=== PATIENT | male | born 1950 | race Caucasian/White ===

== ENCOUNTER 2017-05-30 17:50 | Emergency (ER) | payer BC, MEDICARE, OTHER ==
[2017-05-30] MEDS ORDERED: Ondansetron 4 MG/2 ML SDV IVPUSH ONE (18:12)
[2017-05-30] MEDS ORDERED: Sodium Chloride 0.9% 10 ML Syringe FLUSH PRN ×2 (18:12→19:18)
[2017-05-30] MEDS ORDERED: Ketorolac 30 MG/ML SDV IVPUSH ONE (18:13)
[2017-05-30] MEDS ORDERED: HYDROmorphone 1 MG/ML Syringe IVPUSH ONE (18:14)
[2017-05-30] MEDS ORDERED: Sodium Chloride 0.9% 1,000 ML IV SCH (18:15)
--- NOTE | 2017-05-30 18:37 | EDM.PDOC ---
ED HPI GENERAL MEDICAL PROBLEM - General Chief Complaint: Flank Pain Stated Complaint: PATIENT BELIEVES HE HAS KIDNEY STONES Time Seen by Provider: 05/30/17 18:08 Source of Information: Reports: Patient History Limitations: Reports: No Limitations - History of Present Illness INITIAL COMMENTS - FREE TEXT/NARRATIVE: The patient presents with right flank pain. This started a couple days ago. He says this feels like his past kidney stones. He also has not been feeling good with nausea, but no abdominal pain. He denies fever but he had the chills last night. He has no dysuria and no hematuria. He has also been coughing up some blood tonight. He denies chest pain and shortness of breath. He has a history of kidney stones. He has not been around anyone who is sick. He has a headache. Onset: Gradual Duration: Day(s): (Yesterday) Location: Reports: Head, Back (right flank) Quality: Reports: Sharp Severity: Moderate Improves with: Reports: None Worsens with: Reports: None Associated Symptoms: Reports: Cough, Fever/Chills, Headaches, Nausea/Vomiting. Denies: Chest Pain, Shortness of Breath Right Flank Pain Score (Numeric/FACES): 5 - Related Data Allergies Allergy/AdvReac Type Severity Reaction Status Date / Time No Known Allergies Allergy Verified 05/30/17 18:01 Home Meds: Home Meds Aspirin [Everette Chewable Aspirin] 81 mg PO DAILY 06/25/14 [History] Losartan/Hydrochlorothiazide [Losartan-HCTZ 100-12.5 MG] 1 tab PO DAILY [History] amLODIPine [Norvasc] 10 mg PO DAILY 06/25/14 [History] Azithromycin [IJD: Azithromycin] 250 mg PO DAILY #6 tab 05/30/17 [Rx] Codeine/Promethazine [Phenergan with Codeine] 5 - 10 ml PO Q6HR PRN #300 ml [Rx] Esomeprazole Magnesium [Nexium] 20 mg PO DAILY 05/30/17 [History] Metoprolol Tartrate [Lopressor] 50 mg PO DAILY 05/30/17 [History] Past Medical History Cardiovascular History: Reports: High Cholesterol, Hypertension Genitourinary History: Reports: Renal Calculus Social & Family History - Family History Family Medical History: Noncontributory - Tobacco Use Smoking Status *Q: Never Smoker Years of Tobacco use: 20 Packs/Tins Daily: 2 Used Tobacco, but Quit: Yes Second Hand Smoke Exposure: No - Caffeine Use Caffeine Use: Reports: Coffee - Alcohol Use Days Per Week of Alcohol Use: 0 - Recreational Drug Use Recreational Drug Use: No - Living Situation & Occupation Living situation: Reports: , with Spouse Occupation: Employed ED ROS GENERAL - Review of Systems Review Of Systems: See Below Constitutional: Reports: Chills. Denies: Fever HEENT: Reports: No Symptoms Respiratory: Reports: Cough, Hemoptysis. Denies: Shortness of Breath Cardiovascular: Reports: No Symptoms Endocrine: Reports: No Symptoms GI/Abdominal: Reports: Nausea. Denies: Abdominal Pain, Diarrhea, Vomiting : Reports: No Symptoms Musculoskeletal: Reports: Back Pain (Right flank pain) Skin: Reports: No Symptoms Neurological: Reports: No Symptoms ED EXAM, RENAL/ - Physical Exam Exam: See Below Exam Limited By: No Limitations General Appearance: Alert, No Apparent Distress Ears: Normal External Exam Nose: Normal Inspection Head: Atraumatic, Normocephalic Neck: Normal Inspection Respiratory/Chest: No Respiratory Distress, Lungs Clear, Normal Breath Sounds Cardiovascular: Regular Rate, Rhythm, No Edema, No Murmur GI/Abdominal: Soft, Non-Tender, No Organomegaly, No Mass Back Exam: Normal Inspection Extremities: Normal Inspection Course - Vital Signs Last Recorded V/S: Last Vital Signs Temp 98.3 F 05/30/17 18:06 Pulse 94 05/30/17 18:06 Resp 16 05/30/17 18:06 BP 119/84 05/30/17 18:06 Pulse Ox 96 05/30/17 18:06 - Orders/Labs/Meds Orders: Active Orders 24 hr Category Date Time Status Peripheral IV Care [RC] . DIRECTED Care 05/30/17 18:13 Active Abdomen Pelvis wo Cont [CT] Stat Exams 05/30/17 18:12 Stop Req Ang Chest [CT] Stat Exams 05/30/17 18:16 Stop Req Chest Abdomen Pelvis wo Cont [CT] Stat Exams 05/30/17 19:33 Taken Sodium Chloride 0.9% [Normal Saline] 1,000 ml Med 05/30/17 18:15 Active IV ASDIRECTED Sodium Chloride 0.9% [Saline Flush] Med 05/30/17 18:12 Active 10 ml FLUSH ASDIRECTED PRN ED Antiemetic Medication Reflex [OM.PC] Stat Oth 05/30/17 18:12 Ordered Peripheral IV Insertion Adult [OM.PC] Stat Oth 05/30/17 18:12 Ordered Medication Orders Sodium Chloride (Normal Saline) 1,000 mls @ 125 mls/hr IV ASDIRECTED ART Last Infusion: 05/30/17 19:55 Dose: 999 mls/hr Admin: 05/30/17 18:46 Dose: 125 mls/hr Sodium Chloride (Saline Flush) 10 ml FLUSH ASDIRECTED PRN PRN Reason: Keep Vein Open Last Admin: 05/30/17 18:48 Dose: 10 ml Labs: Laboratory Tests 05/30/17 05/30/17 Range/Units 18:47 18:47 WBC 6.78 (4.23-9.07) K/mm3 RBC 5.19 (4.63-6.08) M/mm3 Hgb 15.3 (13.7-17.5) gm/L Hct 44.1 (40.1-51.0) % MCV 85.0 (79.0-92.2) fl MCH 29.5 (25.7-32.2) pg MCHC 34.7 (32.2-35.5) g/dl RDW Std Deviation 40.8 (35.1-43.9) fL Plt Count 192 (163-337) K/mm3 MPV 10.0 (9.4-12.3) fl Neut % (Auto) 63.5 (34.0-67.9) % Lymph % (Auto) 18.7 L (21.8-53.1) % Armstrong % (Auto) 15.8 H (5.3-12.2) % Eos % (Auto) 1.8 (0.8-7.0) Baso % (Auto) 0.1 (0.1-1.2) % Neut # (Auto) 4.30 (1.78-5.38) K/mm3 Lymph # (Auto) 1.27 L (1.32-3.57) K/mm3 Armstrong # (Auto) 1.07 H (0.30-0.82) K/mm3 Eos # (Auto) 0.12 (0.04-0.54) K/mm3 Baso # (Auto) 0.01 (0.01-0.08) K/mm3 Manual Slide Review Normal smear Sodium 137 (136-145) mEq/L Potassium 3.7 (3.5-5.1) mEq/L Chloride 101 (98-107) mEq/L Carbon Dioxide 25 (21-32) mEq/L Anion Gap 14.7 (5-15) BUN 23 H (7-18) mg/dL Creatinine 2.0 H (0.7-1.3) mg/dL Est Cr Clr Drug Dosing 43.42 mL/min Estimated GFR (MDRD) 34 (>60) mL/min BUN/Creatinine Ratio 11.5 L (14-18) Glucose 97 (80-115) mg/dL Calcium 9.1 (8.5-10.1) mg/dL Total Bilirubin 0.5 (0.2-1.0) mg/dL AST 35 (15-37) U/L ALT 31 (16-63) U/L Alkaline Phosphatase 75 (46-116) U/L Total Protein 8.4 H (6.4-8.2) g/dl Albumin 3.7 (3.4-5.0) g/dl Globulin 4.7 gm/dL Albumin/Globulin Ratio 0.8 L (1-2) Lipase 192 (73-393) U/L Meds: Medications Generic Name Dose Route Start Last Admin Trade Name Freq PRN Reason Stop Dose Admin Sodium Chloride 1,000 mls @ 125 mls/hr 05/30/17 18:15 05/30/17 19:55 Normal Saline IV 999 mls/hr ASDIRECTED ART Infusion Sodium Chloride 10 ml 05/30/17 18:12 05/30/17 18:48 Saline Flush FLUSH 10 ml ASDIRECTED PRN Administration Keep Vein Open Discontinued Medications Generic Name Dose Route Start Last Admin Trade Name Freq PRN Reason Stop Dose Admin Hydromorphone HCl 1 mg 05/30/17 18:14 05/30/17 18:47 Dilaudid IVPUSH 05/30/17 18:15 1 mg ONETIME ONE Administration Sodium Chloride 100 mls @ 80 mls/hr 05/30/17 19:30 Normal Saline IV ASDIRECTED ART Iopamidol 100 ml 05/30/17 19:18 Isovue-300 (61%) IVPUSH 05/30/17 19:19 ONETIME ONE Iopamidol 50 ml 05/30/17 19:19 Isovue-370 (76%) IVPUSH 05/30/17 19:20 ONETIME ONE Ketorolac Tromethamine 30 mg 05/30/17 18:13 05/30/17 18:46 Toradol IVPUSH 05/30/17 18:14 30 mg ONETIME ONE Administration Ondansetron HCl 4 mg 05/30/17 18:12 05/30/17 18:46 Zofran IVPUSH 05/30/17 18:13 4 mg ONETIME ONE Administration Sodium Chloride 10 ml 05/30/17 19:18 Saline Flush FLUSH ONETIME PRN IV FLUSH - Re-Assessments/Exams Free Text/Narrative Re-Assessment/Exam: 05/30/17 18:36 I ordered an IV NS 125mL/hr, zofran 4mg IV, toradol 30mg IV, dilaudid 1mg IV, chest CT, CT of his abdomen and pelvis, labs, UA and influenza screen. 05/30/17 20:53 His influenza was negative. His CBC looks good. His CMP shows an elevated creatinine of 2 and a BUN of 23 with a GFR of 34. His creatinine one other time when he was here was 1.8. As far as he knows he has no kidney problems. The CT of his chest shows 6.5cm hiatal hernia with omental fat and esophagus. Dilated esophagus which could be secondary to achalasia or chronic gastroesophageal reflux. Right lower lobe pneumonia. The CT of his abdomen and pelvis shows nonobstructing stone in the right kidney 3mm in diameter. No acute abnormality in the abdomen and pelvis. 05/30/17 21:07 I will get him on some azithromycin and phenergan with codeine for the cough. His tells me that he lives off of antacids and he is up at night with heart burn and coughing lately. He may need to talk to someone about having the hiatal hernia fixed. 05/30/17 21:10 Departure - Departure Time of Disposition: 21:10 Disposition: Home, Self-Care 01 Condition: Good Clinical Impression: Renal insufficiency, Hiatal hernia Pneumonia Qualifiers: Pneumonia type: due to unspecified organism Laterality: right Lung location: lower lobe of lung Qualified Code(s): J18.1 - Lobar pneumonia, unspecified organism - Discharge Information Prescriptions: Codeine/Promethazine [Phenergan with Codeine] 5 - 10 ml PO Q6HR PRN #300 ml PRN Reason: Cough Azithromycin [IJD: Azithromycin] 250 mg PO DAILY #6 tab Referrals: Eligio Mclaughlin Jr, MD [Primary Care Provider] - 1 Week Forms: ED Department Discharge Additional Instructions: Take the zithromax 2 pills on day 1 and 1 pill on days 2 through 5. Take the phenergan with codeine 5 to 10mls every 6 hours as needed for cough. You have a 6.5cm hiatal hernia that may need to be fixed. Follow up with Dr Mclaughlin to get a referral. Your creatinine was elevated at 2. Normal is around 1. Drink more water and follow up with Dr Mclaughlin please return if you are worse. - My Orders Last 24 Hours: My Active Orders 05/30/17 18:12 Abdomen Pelvis wo Cont [CT] Stat Sodium Chloride 0.9% [Saline Flush] 10 ml FLUSH ASDIRECTED PRN ED Antiemetic Medication Reflex [OM.PC] Stat Peripheral IV Insertion Adult [OM.PC] Stat 05/30/17 18:13 Peripheral IV Care [RC] . DIRECTED 05/30/17 18:15 Sodium Chloride 0.9% [Normal Saline] 1,000 ml IV ASDIRECTED 05/30/17 18:16 Ang Chest [CT] Stat 05/30/17 19:33 Chest Abdomen Pelvis wo Cont [CT] Stat - Assessment/Plan Last 24 Hours: My Active Orders 05/30/17 18:12 Abdomen Pelvis wo Cont [CT] Stat Sodium Chloride 0.9% [Saline Flush] 10 ml FLUSH ASDIRECTED PRN ED Antiemetic Medication Reflex [OM.PC] Stat Peripheral IV Insertion Adult [OM.PC] Stat 05/30/17 18:13 Peripheral IV Care [RC] . DIRECTED 05/30/17 18:15 Sodium Chloride 0.9% [Normal Saline] 1,000 ml IV ASDIRECTED 05/30/17 18:16 Ang Chest [CT] Stat 05/30/17 19:33 Chest Abdomen Pelvis wo Cont [CT] Stat
[2017-05-30] MEDS ORDERED: Iopamidol 612 MG/ML 100 ML Bottle IVPUSH ONE (19:18)
[2017-05-30] MEDS ORDERED: Iopamidol 755 MG/ML 50 ML Bottle IVPUSH ONE (19:19)
[2017-05-30] MEDS ORDERED: Sodium Chloride 0.9% 100 ML IV SCH (19:30)
[2017-05-30 21:35] VITALS: BP 134/79
--- NOTE | 2017-06-01 10:56 | CT ---
CT chest Technique: Multiple axial sections were obtained from above the dome of the diaphragm inferiorly through the lung bases. Intravenous contrast not utilized. Comparison: No prior CT exam, previous chest x-ray of 12/21/14. Findings: Nodule is identified within the isthmus of the thyroid gland. This nodule measures approximately 1.7 cm. Slightly dilated esophagus is seen proximally containing fluid. Small mediastinal lymph nodes are seen which are felt to be within normal limits. Coronary artery calcification is identified. No pericardial thickening is seen. Small hiatal hernia is seen which contains fat. Small nodule is noted within the right upper lung measuring around 5 mm. Second small nodule also seen within the right upper lung most likely due to slight area of scarring. Mild parenchymal density is noted posteriorly within the right lung base. Lungs otherwise are clear. Bone window settings were reviewed which show slight degenerative spurring within the spine without acute abnormality. Impression: 1. Small 5 mm nodule within the right upper chest. Recommend follow-up noncontrast chest CT in one year. 2. Slight parenchymal density within the right lung base. This could represent atelectasis as well as pneumonia. Please correlate if patient has any symptoms of pneumonia. 3. Slightly dilated esophagus which could represent changes of reflux but if any further symptoms of the esophagus are present, esophagram study could be considered. 4. Small nodule within the thyroid isthmus, thyroid ultrasound could be obtained to further evaluate. Diagnostic code #9 I agree with preliminary report issued by [facility] ([facility] report finalized on 03/30/17, 9:48 PM Central Time) CT abdomen and pelvis Technique: Multiple axial sections were obtained from above the dome of the diaphragm inferiorly through the pubic symphysis. Intravenous and oral contrast not utilized. This limits the details of the exam. Comparison: Prior renal stone CT exam of 06/25/14. Findings: Liver contains a small low density area inferiorly within the right lobe. This is felt compatible with a small cyst measuring approximately 1.2 cm. No additional abnormality is identified within the liver. Spleen appears within normal limits. Adrenal glands show no nodule or mass. Atherosclerotic calcification is noted within the right renal artery. Minimal 3 mm stone or possibly vascular calcification is noted within the right kidney. Ureters show no dilatation. No ureteral calculi are seen. Aorta shows atherosclerotic change which continues into the iliac vessels without aneurysm. No retroperitoneal adenopathy or mesenteric abnormalities are seen. No pelvic mass or adenopathy is identified. Bone window settings were reviewed which show minimal degenerative spurring within the spine as well as degenerative apophyseal changes within the lower lumbar spine. No bowel dilatation is seen. Appendix is identified and appears normal. Diverticuli are seen within the sigmoid colon without diverticulitis. Impression: 1. Incidental findings as noted above. Nothing acute is identified on CT study of the abdomen and pelvis. Diagnostic code #2 I agree with preliminary report issued by [employer] ([facility] report finalized on 05/30/17, 9:48 PM Central Time)
== END 2017-05-30 21:25 | disposition home or self-care (01) ==
LOC: JD.ED 17:50
DX: N28.9 Disorder of kidney and ureter, unspecified (principal); K44.9 Diaphragmatic hernia without obstruction or gangrene; J18.9 Pneumonia, unspecified organism; Z79.82 Long term (current) use of aspirin; Z79.899 Other long term (current) drug therapy; E78.00 Pure hypercholesterolemia, unspecified; I10 Essential (primary) hypertension; Z87.442 Personal history of urinary calculi
CPT/HCPCS: 36415; 71250; 74176; 80053; 83690; 85025; 87804; 96361; 96374; 96375; 99285; J1170; J1885; J2405; J7040; J7050; 99284

== ENCOUNTER 2020-04-04 16:44 | Emergency (ER) | payer MEDICARE, OTHER ==
[2020-04-04 17:08] VITALS: BP 161/98; PULSE 77
--- NOTE | 2020-04-04 17:09 | EDM.PDOC ---
ED HPI GENERAL MEDICAL PROBLEM - General Chief Complaint: Abdominal Pain Stated Complaint: HERNIA PAIN Time Seen by Provider: 04/04/20 17:05 Source of Information: Reports: Patient History Limitations: Reports: No Limitations - History of Present Illness INITIAL COMMENTS - FREE TEXT/NARRATIVE: 70-year-old male presents to the ED with acute periumbilical pain and hard mass for the last 2 hours. Patient states he has a chronic umbilical hernia which is really never bothered him much until today. 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 He developed pain in the umbilicus with associated inability to stand erect over the last 2 hours. He states he could feel a firm hard mass at his umbilicus that was very painful. Upon arrival in the ED inability to lay down and relax he found that the umbilical hernia spontaneously reduced with a marked reduction in his pain. He never developed any nausea vomiting. He found it very difficult to try and stand erect toe walk. He has had no previous abdominal surgery. He states he has been having some loose stools the last few days. No blood noted. Onset: Today, Gradual Onset Date: 04/04/20 Onset Time: 15:00 Duration: Hour(s): (Pain periumbilical area for 2 hours.), Improving (Started to improve once he was able to lay down in the ED and relax.) Location: Reports: Abdomen (Umbilical pain with hard palpable mass according to the patient.) Quality: Reports: Ache, Other (Intermittent sharp stabbing colicky pain) Severity: Moderate Improves with: Reports: Other (Resolved after lying down and relaxing in the ED.) Worsens with: Reports: Other (Standing erect made the pain worse. He found he could not) Context: Reports: Other (Was undergoing a lot of vigorous exercise today with pushing pulling and working callus.). Denies: Activity ( walk normally.), Exercise, Lifting, Sick Contact, Trauma Associated Symptoms: Reports: Loss of Appetite. 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: Reports: Other (see below) (None.) Abdomen Pain Score (Numeric/FACES): 8 - Related Data Allergies Allergy/AdvReac Type Severity Reaction Status Date / Time No Known Allergies Allergy Verified 05/30/17 18:01 Home Meds: Home Meds Losartan/Hydrochlorothiazide [Losartan-HCTZ 100-12.5 MG] 1 tab PO DAILY 06/25/14 [History] amLODIPine [Norvasc] 10 mg PO DAILY 06/25/14 [History] Esomeprazole Magnesium [Nexium] 20 mg PO DAILY 05/30/17 [History] Metoprolol Tartrate [Lopressor] 50 mg PO DAILY 05/30/17 [History] Past Medical History Cardiovascular History: Reports: High Cholesterol, Hypertension Genitourinary History: Reports: Renal Calculus Social & Family History - Family History Family Medical History: Noncontributory - Caffeine Use Caffeine Use: Reports: Coffee - Living Situation & Occupation Living situation: Reports: , with Spouse Occupation: Employed ED ROS GENERAL - Review of Systems Review Of Systems: See Below Constitutional: Reports: Decreased Appetite. Denies: Fever, Chills, Malaise, Weakness, Fatigue, Weight Loss HEENT: Reports: Glasses (Wears glasses for reading at times.) Respiratory: Denies: Shortness of Breath, Wheezing, Pleuritic Chest Pain Cardiovascular: Reports: Blood Pressure Problem. Denies: Chest Pain, Claudication, Dyspnea on Exertion, Edema, Lightheadedness, Orthopnea, Palpitations Endocrine: Reports: No Symptoms GI/Abdominal: Reports: Abdominal Pain (See history of present illness.), Diarrhea (Loose stools once or twice daily the last few days.) : Reports: Frequency, Other Musculoskeletal: Reports: Back Pain (Trigger x2-3.), Joint Pain Skin: Reports: No Symptoms (Sips neck and shoulders at times.) Neurological: Reports: No Symptoms Psychiatric: Reports: No Symptoms Hematologic/Lymphatic: Reports: No Symptoms Immunologic: Reports: No Symptoms ED EXAM, GI/ABD - Physical Exam Exam: See Below Exam Limited By: No Limitations General Appearance: Alert, WD/WN, Anxious, Mild Distress Eyes: Bilateral: Normal Appearance (No scleral icterus or blepharal pallor.) Respiratory/Chest: No Respiratory Distress, Lungs Clear, Normal Breath Sounds, No Accessory Muscle Use Cardiovascular: Normal Peripheral Pulses, Regular Rate, Rhythm, No Edema, No Murmur, No Rub GI/Abdominal Exam: Tender (Does have mild tenderness at the umbilicus. However the umbilicus is now soft and he reports that the hard painful lesion that has been present for the last 2 hours has resolved. He does have a mild firmness to the right side of the umbilicus without any guarding or rebound.), Abnormal Bowel Sounds (Sounds are hyperactive in all 4 quadrants.), Other (No surgical scars.). No: Guarding, Rigid, Rebound Extremities: Normal Inspection, Normal Range of Motion, Non-Tender, No Pedal Edema Neurological: Alert, Oriented, CN II-XII Intact, Normal Cognition Psychiatric: Normal Affect, Normal Mood Skin Exam: Warm, Dry, Intact, Normal Color, No Rash Course - Vital Signs Last Recorded V/S: Last Vital Signs Temp 36.7 C 04/04/20 17:06 Pulse 77 04/04/20 17:06 Resp 20 04/04/20 17:06 BP 161/98 H 04/04/20 17:06 Pulse Ox 97 04/04/20 17:06 - Orders/Labs/Meds Orders: Active Orders 24 hr Category Date Time Status Abdomen Pelvis wo Cont [CT] Stat Exams 04/04/20 17:24 Taken - Radiology Interpretation Free Text/Narrative:: 70-year-old male presents to the ED with a 2-hour history of hard painful mass at his umbilicus after 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 He states he has had a chronic umbilical hernia for many years which is never given him any problems. He has had no previous abdominal surgery. States pain and mass was constant for the last 2 hours and he was unable to stand fully erect or walk normally. Since he has been in the ED and relaxing lying on the bed and massaging the area he feels that the hernia has reduced itself and the hard painful mass is now much better. Exam reveals softness of the umbilical hernia with no firm mass.. There is a bit of firmness to the right of the umbilicus which is mildly tender. Bowel sounds are very active in all 4 quadrants. Plan he will have CT of the abdomen performed without contrast to make sure there is no significant incarceration of mesentery or bowel in the umbilical hernia. - Re-Assessments/Exams Free Text/Narrative Re-Assessment/Exam: 04/04/20 18:01 CT scan of the abdomen pelvis has been performed without IV contrast. Visualized portions of the lower lungs are clear. Cardiac silhouette appears normal. Liver appears homogeneous with mild fatty infiltration. No intraductal dilatation. Questionable few calcifications within the gallbladder suggesting very minimal stone disease versus calcification in the gallbladder wall. However he has no right upper quadrant tenderness to suggest cholecystitis clinically. Pancreas and spleen are normal. Stomach appears normal. Both kidneys appear normal with no obvious renal stones. Urinary bladder is distended. Prostate is mildly enlarged. There is evidence of a fat- containing umbilical hernia with no evidence of incarceration of bowel or mesentery at this time. Mild stranding of the fat in the umbilicus at this time. There is mild bilateral fat-containing inguinal hernias as well. There is increased stool throughout the colon. Patient has diffuse atherosclerotic changes throughout the aorta and particularly iliac arteries without any aneurysmal dilatation. 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 Patient was able to get up and walk in the ED without any abdominal pain at this time. He will be advised to seek surgical consultation for umbilical hernia repair since it is now causing problems and is at risk of developing an incarcerated hernia. He will follow up with surgeon in the future. 04/04/20 18:05 He was up walking in the hallway without any further abdominal pain. Therefore he will be discharged to home. Advised to follow-up with Dr. Mclaughlin who can refer him to a surgeon of choice. Departure - Departure Time of Disposition: 18:20 Disposition: Home, Self-Care 01 Condition: Fair Clinical Impression: Umbilical hernia Qualifiers: Obstruction and gangrene presence: without obstruction or gangrene Qualified Code(s): K42.9 - Umbilical hernia without obstruction or gangrene Abdominal pain Qualifiers: Abdominal location: periumbilical Qualified Code(s): R10.33 - Periumbilical pain - Discharge Information *PRESCRIPTION DRUG MONITORING PROGRAM REVIEWED*: Not Applicable *COPY OF PRESCRIPTION DRUG MONITORING REPORT IN PATIENT URIEL: Not Applicable Instructions: Umbilical Hernia, Adult Referrals: Eligio Mclaughlin Jr, MD [Primary Care Provider] - Forms: ED Department Discharge Additional Instructions: Evaluation in the emergency room today in regards to development of severe umbil ical pain or period of 2 hours while 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 History suggest she had a chronic umbilical hernia which is never given you any problems before. When she were in the emergency room and laying down for a period of time the hernia appears to have reduced itself. We were aware of the hard firm mass that was present previously that was quite tender which is now gone. Examination confirms an umbilical hernia and likely bilateral mild inguinal hernias on exam. CT scan of the abdomen and pelvis was performed with out any contrast and reveals that there is a fat-containing umbilical hernia which is evident clinically without any bowel or mesentery stuck in it at this time. You were able to walk in the hallway without any further abdominal pain and the hernia appears to have reduced itself at this time. This takes away the emergency component of the hernia. However you are at risk of recurrent incarceration or recurrence of similar event today. It is advised that this umbilical hernia should be repaired by a surgeon. Of course return to the ED at any time if you develop similar type symptoms and the hard firm mass was not reduce once you are lying down and massaging the area. Usually if it has been present for more than a couple of hours it is unlikely to reduce as it continues to swell and worsen. Sepsis Event Note (ED) - Focused Exam Vital Signs: Vital Signs Temp Pulse Resp BP Pulse Ox 04/04/20 17:06 36.7 C 77 20 161/98 H 97 - My Orders Last 24 Hours: My Active Orders 04/04/20 17:24 Abdomen Pelvis wo Cont [CT] Stat - Assessment/Plan Last 24 Hours: My Active Orders 04/04/20 17:24 Abdomen Pelvis wo Cont [CT] Stat
--- NOTE | 2020-04-06 15:27 | CT ---
"PROCEDURE INFORMATION: Exam: CT Abdomen And Pelvis Without Contrast Exam date and time: 04/04/2020 5:24 PM Age: 70 years old Clinical indication: Mass, lump, or swelling; Other: Hardened mass ubilicus for the last two hrs. ; Patient HX: Chronic umbilical hernia with no prev problems. Exam reveals umbilical hernia which is now soft and reducible. Mild firmness to the RT of the umbilicus. Rule out any persistent incarceration. TECHNIQUE: Imaging protocol: Computed tomography of the abdomen and pelvis without contrast. COMPARISON: CT Chest Abdomen Pelvis wo Cont 05/30/2017 7:40 PM FINDINGS: Lungs: Chronic stranding and atelectasis in the bilateral lung bases without acute findings. Stable 4 mm nodule in the right lung base since 2017, most probably benign as per the Fleischner Society guidelines. No follow-up is recommended. Mediastinal space: A moderate hiatal hernia is present. Liver: There is mild enlargement of the liver. There is a diffuse decrease in hepatic parenchymal density, consistent with fatty infiltration. 1 cm hypodense lesion in the right hepatic lobe on image 22 series 2 is incompletely characterized in this examination. Consider correlation with ultrasound in a nonemergent setting. Gallbladder and bile ducts: Question of mild pericholecystic fluid or gallbladder wall thickening. No biliary ductal dilation. Pancreas: Normal. No ductal dilation. Spleen: Normal. No splenomegaly. Adrenal glands: Normal. No mass. Kidneys and ureters: Normal. No hydronephrosis. Stomach and bowel: No bowel wall thickening, obstruction, or other acute pathology. Diffuse colonic diverticulosis is present. There is moderately excessive colonic stool content. Appendix: No evidence of appendicitis. BARTOLO KAUFMAN | Final Radiology Report CONFIDENTIALITY STATEMENT This report is intended only for use by the referring physician, and only in accordance with law. If you received this in error, call [phone]. Page 2 of 2 Intraperitoneal space: Unremarkable. No free air. No significant fluid collection. Vasculature: The vasculature demonstrates diffuse moderate atherosclerotic calcification. Lymph nodes: Unremarkable. No enlarged lymph nodes. Urinary bladder: Unremarkable as visualized. Reproductive: Unremarkable as visualized. Bones/joints: No acute skeletal pathology. Moderate multilevel degenerative changes of the spine, as manifested by multilevel anterior osteophytes and multilevel decrease in intervertebral disc space. Soft tissues: Small bilateral fat containing inguinal hernias are appreciated. There is a small fat containing umbilical hernia appreciated. There is mild fat stranding noted in the herniated mesenteric fat. IMPRESSION: 1. Small umbilical/paraumbilical fat containing hernia which appears essentially stable when compared to the reference examination. Findings in the herniated mesenteric fat may be chronic in etiology or related to mild panniculitis in the appropriate clinical setting. 2. Gallbladder findings are nonspecific and correlation with any right upper quadrant pain or further evaluation with ultrasound is recommended if clinically warranted. 3. Incidental findings as detailed above. Thank you for allowing us to participate in the care of your patient. Dictated and Authenticated by: Miguel Ortega MD 04/04/2020 6:55 PM Central Time ([place] & [place]) MTDD"
== END 2020-04-04 18:24 | disposition home or self-care (01) ==
LOC: JD.ED 16:44
DX: K42.9 Umbilical hernia without obstruction or gangrene (principal); I10 Essential (primary) hypertension; Z79.899 Other long term (current) drug therapy
CPT/HCPCS: 74176; 74176-26; 99283-25; 99284

== ENCOUNTER 2021-10-01 13:22 | Emergency (ER) | payer MEDICARE, OTHER ==
[2021-10-01 13:45] VITALS: BP 146/88; PULSE 88
[2021-10-01] MEDS ORDERED: Sodium Chloride 0.9% 10 ML Syringe FLUSH PRN ×2 (13:46→13:54)
[2021-10-01] MEDS ORDERED: HYDROmorphone 1 MG/ML Syringe IVPUSH ONE ×2 (13:48→16:05)
[2021-10-01] MEDS ORDERED: Iopamidol 612 MG/ML 100 ML Bottle IVPUSH ONE (13:54)
[2021-10-01] MEDS ORDERED: Iopamidol 612 MG/ML 50 ML SDV IVPUSH ONE (13:54)
[2021-10-01] MEDS ORDERED: Ketorolac 30 MG/ML SDV IVPUSH ONE (16:06)
== END 2021-10-01 17:58 | disposition home or self-care (01) ==
LOC: JD.ED 13:22
DX: M54.41 Lumbago with sciatica, right side (principal); K22.89 Other specified disease of esophagus; I10 Essential (primary) hypertension; E78.00 Pure hypercholesterolemia, unspecified; Z79.899 Other long term (current) drug therapy
CPT/HCPCS: 36415; 70450; 71260; 72125; 74177; 80053; 83690; 85025; 85610; 85730; 96374; 96375; 96376; 99284; J1170; J1885; J3490; Q9967

== ENCOUNTER 2021-10-09 12:39 | Day surgery (SDC) | payer MEDICARE, OTHER ==
[~2021-10-09 12:39] MED LIST: Lactated Ringers 1,000 ML IV SCH; Lidocaine 1%/Sod Bicarbonate in NS 8.4% 1 ML Syringe IDERM PRN; Sodium Chloride 0.9% 10 ML Syringe FLUSH PRN; Sodium Chloride 0.9% 10 ML Syringe FLUSH SCH
[2021-10-09] MEDS ORDERED: Lidocaine 1% 4 ML ONE (13:20)
[2021-10-09] MEDS ORDERED: Propofol 200 MG/20 ML SDV ONE ×2 (13:20→13:21)
[2021-10-09 14:47] VITALS: BP 131/83
[2021-10-09 14:59] VITALS: PULSE 66
== END 2021-10-09 14:17 | disposition home or self-care (01) ==
LOC: JD.SDS 12:39
PROVIDERS: ATTEND Surgery
DX: K29.50 Unspecified chronic gastritis without bleeding (principal); C15.9 Malignant neoplasm of esophagus, unspecified; K31.A0 Gastric intestinal metaplasia, unspecified; B37.89 Other sites of candidiasis; K31.7 Polyp of stomach and duodenum; K44.9 Diaphragmatic hernia without obstruction or gangrene; H54.7 Unspecified visual loss; E78.00 Pure hypercholesterolemia, unspecified; R59.0 Localized enlarged lymph nodes; I12.9 Hypertensive chronic kidney disease with stage 1 through stage 4 chronic kidney disease, or unspecified chronic kidney disease; N18.9 Chronic kidney disease, unspecified; K21.9 Gastro-esophageal reflux disease without esophagitis; F17.200 Nicotine dependence, unspecified, uncomplicated; Z79.899 Other long term (current) drug therapy
CPT/HCPCS: 43239; 43251; J2704; J7120; 00731; 88305; 88312; 88341; 88342; 99100

== ENCOUNTER 2021-12-13 10:10 | Emergency (ER) | payer MEDICARE, OTHER ==
[2021-12-13] MEDS ORDERED: Morphine 2 MG/ML SYRINGE IVPUSH ONE ×4 (10:35→13:03)
[2021-12-13] MEDS ORDERED: Morphine 2 MG/ML SYRINGE ONE (10:36)
[2021-12-13] MEDS ORDERED: Sodium Chloride 0.9% 10 ML Syringe FLUSH PRN ×2 (11:18→12:33)
[2021-12-13] MEDS ORDERED: Iopamidol 755 Mg/ML 100 ML Bottle IVPUSH ONE (12:33)
[2021-12-13] MEDS ORDERED: Sodium Chloride 0.9% 100 ML IV SCH (12:45)
[2021-12-13] MEDS ORDERED: fentaNYL 100 MCG/2 ML SDV IVPUSH ONE (13:57)
[2021-12-13] MEDS ORDERED: Heparin Sodium 5,000 Units/ML Vial IVPUSH ONE (14:17)
[2021-12-13] MEDS ORDERED: Heparin Sodium/D5W 25,000 UNITS/500 ML BAG IV SCH (14:30)
[2021-12-13 18:07] VITALS: BP 130/98; PULSE 97
== END 2021-12-13 15:57 ==
LOC: JD.ED 10:10
DX: I26.99 Other pulmonary embolism without acute cor pulmonale (principal); E78.00 Pure hypercholesterolemia, unspecified; I12.9 Hypertensive chronic kidney disease with stage 1 through stage 4 chronic kidney disease, or unspecified chronic kidney disease; N18.9 Chronic kidney disease, unspecified; K21.9 Gastro-esophageal reflux disease without esophagitis; Z79.899 Other long term (current) drug therapy
CPT/HCPCS: 36415; 71045; 71275; 80053; 83735; 84484; 85025; 85379; 85610; 93005; 96361; 96365; 96375; 96376; 99285; J1644; J2270; J3010; J3490; Q9967; 93010; 99284